=== PATIENT | male | born 1945 | race Caucasian/White ===

== ENCOUNTER 2016-08-06 14:01 | Outpatient (CLI) | payer MEDICARE | END 2016-08-06 14:02 | disposition home or self-care (01) | DX: E29.1 Testicular hypofunction (principal) ==

== ENCOUNTER 2016-09-26 10:37 | Outpatient (CLI) | payer MEDICARE | END 2016-09-26 10:38 | disposition home or self-care (01) | DX: E29.1 Testicular hypofunction (principal); E23.0 Hypopituitarism ==

== ENCOUNTER 2016-11-06 09:56 | Outpatient (CLI) | payer MEDICARE ==
[2016-11-06 18:12] LABS: ALBUMIN/GLOBULIN RATIO 1.5 (1.0-2.2); BILIRUBIN,TOTAL 0.9 mg/dL (0.2-1.0); BILIRUBIN,URINE NEGATIVE (NEGATIVE); BUN - BLOOD UREA NITROGEN 17 mg/dL (6-20); CALCIUM 9.4 mg/dL (8.5-10.3); CARBON DIOXIDE - CO2 28 mmol/L (21-32); CHLORIDE 103 mmol/L (101-111); CHOL/HDL RATIO 2.4 (<5.0); CHOLESTEROL 116 mg/dL; CREATININE 1.1 mg/dL (0.6-1.2); GFR - MDRD 66 (>89); GLUCOSE 118 mg/dL (70-100); HDL CHOLESTEROL 48 mg/dL; LDL/HDL RATIO 1.1 (<3.6); POTASSIUM 3.9 mmol/L (3.5-5.0); SODIUM 138 mmol/L (135-145); TOTAL PROTEIN 7.1 g/dL (6.7-8.2); TRIGLYCERIDES 66 mg/dL; VLDL CHOLESTEROL 13 mg/dL
[2016-11-06 18:20] LABS: BASOPHILS % (AUTO) 0.5 %; EOSINOPHILS # (AUTO) 0.1 10^3/uL (0.0-0.7); HCT - HEMATOCRIT 45.3 % (42.0-52.0); HGB - HEMOGLOBIN 15.1 g/dL (14.0-18.0); LYMPHOCYTES # (AUTO) 1.2 10^3/uL (1.5-3.5); LYMPHOCYTES % (AUTO) 19.9 %; MEAN CORPUSCULAR HEMOGLOBIN 31.6 pg (27.0-31.0); MEAN CORPUSCULAR HGB CONC 33.3 g/dL (32.0-36.0); MEAN CORPUSCULAR VOLUME 95.1 fL (80.0-94.0); MEAN PLATELET VOLUME 8.2 fL (7.4-11.4); MONOCYTES # (AUTO) 0.6 10^3/uL (0.0-1.0); MONOCYTES % (AUTO) 9.1 %; NEUTROPHILS # (AUTO) 4.3 10^3/uL (1.5-6.6); NEUTROPHILS % (AUTO) 69.5 %; RED BLOOD COUNT 4.76 10^6/uL (4.70-6.10); RED CELL DISTRIBUTION WIDTH 13.9 % (12.0-15.0); UNCORRECTED WHITE BLOOD COUNT 6.2 x10^3/uL; WHITE BLOOD COUNT 6.2 x10^3/uL (4.8-10.8)
[2016-11-06 18:32] LABS: HEMOGLOBIN A1C 0.69 g/dL
[2016-11-06 19:10] LABS: WBC,URINE 0-3 /HPF (0-3)
== END 2016-11-06 09:57 | disposition home or self-care (01) ==
LOC: LAB.F 09:56
PROVIDERS: ATTEND Family Medicine
DX: D64.9 Anemia, unspecified (principal); N28.9 Disorder of kidney and ureter, unspecified; R73.01 Impaired fasting glucose; E29.1 Testicular hypofunction; E03.9 Hypothyroidism, unspecified; E78.5 Hyperlipidemia, unspecified; I10 Essential (primary) hypertension; E23.0 Hypopituitarism
CPT/HCPCS: 36415; 80053; 80061; 81001; 83036; 84403; 84443; 85025

== ENCOUNTER 2016-11-14 16:44 | Outpatient (CLI) | payer MEDICARE ==
--- NOTE | 2016-11-15 11:33 | Ultrasound Report ---
BILATERAL LOWER EXTREMITY ARTERIAL DUPLEX: 11/14/2016 CLINICAL INDICATION: Claudication, peripheral vascular disease. TECHNIQUE: Real-time sonographic vascular imaging was performed by the manager resource through the lower extremities utilizing both color-flow and Doppler spectral analysis. Multiple independent sales representative static images were saved for review. RIGHT SIDE SITE PSV WAVEFORM STEN LABORER GOLF COURSE 85 triphase PSFA 101 triphase MSFA 78 triphase DSFA 68 triphase PFA 66 triphase POP 77 triphase SCOTT 41 triphase COIN BOX COLLECTOR 49 triphase PER 55 triphase DPA 9 biphase LEFT SIDE SITE PSV WAVEFORM STEN LABORER GOLF COURSE 71 triphase PSFA 87 triphase MSFA 79 triphase DSFA 13 triphase PFA 60 triphase POP 58 triphase SCOTT 44 triphase COIN BOX COLLECTOR 47 triphase PER 30 biphase DPA 44 biphase TECHNIQUE: Real-time scanning was performed. FINDINGS: RIGHT LEG: Waveforms are predominantly triphasic. There is no evidence of a focal velocity increase to suggest a hemodynamically significant stenosis. LEFT LEG: Waveforms are predominantly triphasic. There is no evidence of a focal velocity increase to suggest a hemodynamically significant stenosis. IMPRESSION: NO EVIDENCE OF A FOCAL HEMODYNAMICALLY SIGNIFICANT ARTERIAL STENOSIS IN EITHER LEG. MTDD
== END 2016-11-14 16:45 | disposition home or self-care (01) ==
LOC: DI 16:44
PROVIDERS: ATTEND Family Medicine
DX: I73.9 Peripheral vascular disease, unspecified (principal)
CPT/HCPCS: 93925

== ENCOUNTER 2017-06-16 11:28 | Outpatient (CLI) | payer MEDICARE ==
[2017-06-16 18:34] LABS: BASOPHILS % (AUTO) 0.3 %; EOSINOPHILS % (AUTO) 0.5 %; HGB - HEMOGLOBIN 13.2 g/dL (14.0-18.0); LYMPHOCYTES % (AUTO) 14.5 %; MEAN CORPUSCULAR HEMOGLOBIN 32.6 pg (27.0-31.0); MEAN CORPUSCULAR HGB CONC 33.1 g/dL (32.0-36.0); MEAN CORPUSCULAR VOLUME 98.7 fL (80.0-94.0); MEAN PLATELET VOLUME 7.1 fL (7.4-11.4); MONOCYTES # (AUTO) 0.5 10^3/uL (0.0-1.0); MONOCYTES % (AUTO) 7.7 %; NEUTROPHILS # (AUTO) 5.4 10^3/uL (1.5-6.6); PLT - PLATELET COUNT 268 10^3/uL (130-450); RED BLOOD COUNT 4.04 10^6/uL (4.70-6.10); RED CELL DISTRIBUTION WIDTH 13.5 % (12.0-15.0); WHITE BLOOD COUNT 7.1 x10^3/uL (4.8-10.8)
[2017-06-16 18:41] LABS: ALBUMIN 4.5 g/dL (3.2-5.5); ALBUMIN/GLOBULIN RATIO 1.8 (1.0-2.2); ALKALINE PHOSPHATASE 61 IU/L (42-121); ALT ALANINE AMINOTRANSFERASE 21 IU/L (10-60); AST ASPARTATE AMINOTRANSFERASE 23 IU/L (10-42); BILIRUBIN,TOTAL 0.4 mg/dL (0.2-1.0); BUN - BLOOD UREA NITROGEN 27 mg/dL (6-20); CALCIUM 9.4 mg/dL (8.5-10.3); CARBON DIOXIDE - CO2 23 mmol/L (21-32); CHLORIDE 103 mmol/L (101-111); CHOL/HDL RATIO 3.3 (<5.0); CHOLESTEROL 169 mg/dL; GFR - MDRD 74 (>89); GLUCOSE 95 mg/dL (70-100); HDL CHOLESTEROL 52 mg/dL; LDL CHOLESTEROL,CALCULATED 83 mg/dL; LDL/HDL RATIO 1.6 (<3.6); SODIUM 135 mmol/L (135-145); VLDL CHOLESTEROL 34 mg/dL
[2017-06-16 19:43] LABS: HB2 TOTAL 14.1 g/dL; HEMOGLOBIN A1C 0.62 g/dL; HEMOGLOBIN A1C % 6.2 % (4.6-6.2)
== END 2017-06-16 11:29 | disposition home or self-care (01) ==
LOC: LAB.F 11:28
PROVIDERS: ATTEND Family Medicine
DX: D64.9 Anemia, unspecified (principal); N28.9 Disorder of kidney and ureter, unspecified; R73.01 Impaired fasting glucose; E29.1 Testicular hypofunction; E03.9 Hypothyroidism, unspecified; E78.5 Hyperlipidemia, unspecified; I10 Essential (primary) hypertension; E23.0 Hypopituitarism; M16.0 Bilateral primary osteoarthritis of hip
CPT/HCPCS: 36415; 80053; 80061; 83036; 84403; 84443; 85025

== ENCOUNTER 2017-07-02 14:52 | Outpatient (CLI) | payer MEDICARE | END 2017-07-02 14:53 | disposition home or self-care (01) | LOC: RT 14:52 | PROVIDERS: ATTEND Surgery | DX: R06.02 Shortness of breath (principal) | CPT/HCPCS: 93005 ==

== ENCOUNTER 2017-07-09 10:13 | Outpatient (CLI) | payer MEDICARE ==
[2017-07-09] MEDS ORDERED: BARIUM SULFATE 148 GM POWDER PO ONE (10:42)
[2017-07-09] MEDS ORDERED: BARIUM SULFATE 135 ML BOTTLE PO ONE (10:42)
--- NOTE | 2017-07-09 12:14 | XRAY Report ---
DATE OF SERVICE: 07/09/2017 ESOPHAGRAM: 07/09/2017 CLINICAL INDICATION: Dysphagia. FINDINGS: Esophagram was performed in the upright and prone positions. The esophagus is normal in caliber. Presbyesophagus is present. No esophageal ulceration, mass lesion, or stricturing is seen. The hypopharynx appears unremarkable. Gastroesophageal reflux was seen during the course of the study. No hiatal hernia is present. A 13 mm barium pill passed freely through the esophagus, but had difficulty passing through the distal esophageal sphincter into the stomach. IMPRESSION: 1. PRESBYESOPHAGUS. 2. GASTROESOPHAGEAL REFLUX. NO EVIDENCE OF ESOPHAGEAL ULCERATION OR MASS LESION. FLUOROSCOPY TIME: 2 MINUTES 20 SECONDS; 18 SPOT IMAGES OBTAINED. TD: 07/09/2017 13:13
== END 2017-07-09 10:14 | disposition home or self-care (01) ==
LOC: DI 10:13
PROVIDERS: ATTEND Surgery
DX: K22.8 Other specified diseases of esophagus (principal); K21.9 Gastro-esophageal reflux disease without esophagitis
CPT/HCPCS: 74220; A9270

== ENCOUNTER 2017-07-24 13:02 | Day surgery (SDC) | payer MEDICARE ==
[2017-07-24] MEDS ORDERED: LACTATED RINGERS 1,000 ML IV ONE (13:30)
[2017-07-24] MEDS ORDERED: MIDAZOLAM 2 MG/2 ML VIAL IVP ONE (14:10)
[2017-07-24] MEDS ORDERED: fentaNYL 100 MCG/2 ML VIAL IVP ONE (14:10)
[2017-07-24 15:14] VITALS: BP 129/74
== END 2017-07-24 13:03 | disposition home or self-care (01) ==
LOC: SDS 13:02
PROVIDERS: ATTEND Surgery
PROC: 0DB78ZX Excision of Stomach, Pylorus, Via Natural or Artificial Opening Endoscopic, Diagnostic (ICD-10-PCS; principal; 2017-07-24 14:15)
DX: R13.10 Dysphagia, unspecified (principal); I10 Essential (primary) hypertension; G47.30 Sleep apnea, unspecified; E03.9 Hypothyroidism, unspecified; E78.5 Hyperlipidemia, unspecified; F32.9 Major depressive disorder, single episode, unspecified; G25.81 Restless legs syndrome
CPT/HCPCS: 43239; J7120

== ENCOUNTER 2017-07-29 13:13 | Outpatient (CLI) | payer MEDICARE ==
[~2017-07-29 13:13] MED LIST: ALBUTEROL NEB 2.5 MG/3 ML INH ONE
== END 2017-07-29 13:14 | disposition home or self-care (01) ==
LOC: RT 13:13
PROVIDERS: ATTEND Family Medicine
DX: R06.02 Shortness of breath (principal)
CPT/HCPCS: 94010; 94729

== ENCOUNTER 2017-08-28 11:23 | Day surgery (SDC) | payer MEDICARE ==
[2017-08-28] MEDS ORDERED: LACTATED RINGERS 1,000 ML IV ONE (11:59)
[2017-08-28] MEDS ORDERED: fentaNYL 250 MCG/5 ML VIAL IVP ONE (12:52)
[2017-08-28] MEDS ORDERED: MIDAZOLAM 2 MG/2 ML VIAL IVP ONE (12:52)
[2017-08-28 13:49] VITALS: BP 132/78
== END 2017-08-28 11:24 | disposition home or self-care (01) ==
LOC: SDS 11:23
PROVIDERS: ATTEND Surgery
PROC: 0DJD8ZZ Inspection of Lower Intestinal Tract, Via Natural or Artificial Opening Endoscopic (ICD-10-PCS; principal; 2017-08-28 12:30)
DX: K92.1 Melena (principal); K64.8 Other hemorrhoids; I10 Essential (primary) hypertension; E78.5 Hyperlipidemia, unspecified; E03.9 Hypothyroidism, unspecified; G47.30 Sleep apnea, unspecified; Z87.891 Personal history of nicotine dependence
CPT/HCPCS: 45378; J3010; J7120

== ENCOUNTER 2017-11-19 14:30 | Outpatient (CLI) | payer MEDICARE | END 2017-11-19 14:31 | disposition home or self-care (01) | LOC: RT.S 14:30 | PROVIDERS: ATTEND Nurse Practitioner Family | DX: R53.83 Other fatigue (principal) | CPT/HCPCS: 93005 ==

== ENCOUNTER 2017-11-20 10:28 | Outpatient (CLI) | payer MEDICARE ==
[2017-11-20 17:34] LABS: BASOPHILS % (AUTO) 0.4 %; EOSINOPHILS % (AUTO) 0.4 %; HGB - HEMOGLOBIN 13.4 g/dL (14.0-18.0); LYMPHOCYTES # (AUTO) 0.9 10^3/uL (1.5-3.5); LYMPHOCYTES % (AUTO) 12.5 %; MEAN CORPUSCULAR HEMOGLOBIN 32.2 pg (27.0-31.0); MEAN CORPUSCULAR HGB CONC 32.8 g/dL (32.0-36.0); MEAN CORPUSCULAR VOLUME 98.4 fL (80.0-94.0); MEAN PLATELET VOLUME 7.5 fL (7.4-11.4); MONOCYTES # (AUTO) 0.5 10^3/uL (0.0-1.0); NEUTROPHILS # (AUTO) 5.8 10^3/uL (1.5-6.6); NEUTROPHILS % (AUTO) 79.7 %; PLT - PLATELET COUNT 356 10^3/uL (130-450); RED BLOOD COUNT 4.15 10^6/uL (4.70-6.10); RED CELL DISTRIBUTION WIDTH 13.4 % (12.0-15.0); WHITE BLOOD COUNT 7.3 x10^3/uL (4.8-10.8)
[2017-11-20 18:02] LABS: HB2 TOTAL 14.6 g/dL; HEMOGLOBIN A1C 0.61 g/dL
[2017-11-20 18:13] LABS: ALBUMIN 4.1 g/dL (3.2-5.5); ALBUMIN/GLOBULIN RATIO 1.3 (1.0-2.2); BILIRUBIN,TOTAL 0.5 mg/dL (0.2-1.0); CALCIUM 9.6 mg/dL (8.5-10.3); CREATININE 1.1 mg/dL (0.6-1.2); TOTAL PROTEIN 7.3 g/dL (6.7-8.2)
== END 2017-11-20 10:29 | disposition home or self-care (01) ==
LOC: LAB.F 10:28
PROVIDERS: ATTEND Nurse Practitioner Family
DX: R53.83 Other fatigue (principal); R73.01 Impaired fasting glucose; D64.9 Anemia, unspecified; R06.02 Shortness of breath; Z12.5 Encounter for screening for malignant neoplasm of prostate; E29.1 Testicular hypofunction
CPT/HCPCS: 36415; 80053; 81599; 83036; 83540; 83880; 84402; 84403; 84443; 84466; 85025; G0103; 84153

== ENCOUNTER 2018-03-01 10:11 | Outpatient (CLI) | payer MEDICARE ==
--- NOTE | 2018-03-01 12:33 | XRAY Report ---
Reason: PAIN IN LEFT RIGHT HIP, PAIN IN LEFT ANKLE Procedure Date: 03/01/2018 Accession Number: [id number] / [id number] Procedure: XR - Ankle 3 View LT CPT Code: FULL RESULT: EXAM: LEFT ANKLE RADIOGRAPHY EXAM DATE: 03/01/2018 10:44 AM. CLINICAL HISTORY: PAIN IN LEFT RIGHT HIP, PAIN IN LEFT ANKLE. COMPARISON: None. TECHNIQUE: 3 views. FINDINGS: Bones: Normal. No fractures or bone lesions. 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 There is abnormal angulation of the tibiotalar joint laterally. Soft Tissues: Soft tissue swelling adjacent to the medial malleolus. 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 RADIA
--- NOTE | 2018-03-01 13:34 | XRAY Report ---
Reason: PAIN IN LEFT RIGHT HIP, PAIN IN LEFT ANKLE Procedure Date: 03/01/2018 Accession Number: [id number] / [id number] Procedure: XR - Hips 2V BILAT CPT Code: FULL RESULT: EXAM: BILATERAL HIP RADIOGRAPHY EXAM DATE: 03/01/2018 10:44 AM. CLINICAL HISTORY: PAIN IN LEFT RIGHT HIP, PAIN IN LEFT ANKLE. COMPARISON: None. TECHNIQUE: 2 views each. FINDINGS: Bones: Normal. No fractures or bone lesion. Right Hip: Severe joint space narrowing superiorly with near [id number] contact. No significant sclerotic changes and osteophyte formations. Left Hip: Normal. No dislocation. The hip joint space is preserved. Soft Tissues: Normal. No soft tissue swelling. IMPRESSION: 1. Severe joint space narrowing superiorly in the right hip with near [id number] contact with no significant sclerotic changes are osteophyte formations. 2. The left hip joint is unremarkable. RADIA
== END 2018-03-01 10:12 | disposition home or self-care (01) ==
LOC: DI 10:11
PROVIDERS: ATTEND Internal Medicine
DX: M25.851 Other specified joint disorders, right hip (principal); M25.552 Pain in left hip; M19.072 Primary osteoarthritis, left ankle and foot
CPT/HCPCS: 73521